=== PATIENT | male | born 1940 | race Caucasian/White ===

== ENCOUNTER 2016-07-25 13:15 | Emergency (ER) | payer MEDICARE, BC ==
[~2016-07-25] VITALS: Ht 152.4 cm; Wt 95.5 kg
[2016-07-25 13:36] VITALS: Ht 152.4 cm; Wt 95.5 kg
[2016-07-25 16:15] LABS: ADD SCAN DIFF NO
[2016-07-25 16:17] LABS: BASOPHILS % 0.3 % (0.0-2.0); EOSINOPHILS # 0.2 10^3/ul (0.0-0.5); EOSINOPHILS % 1.4 % (0.0-7.0); HEMATOCRIT 44.9 % (42.0-52.0); HEMOGLOBIN 14.8 g/dl (14.0-18.0); LYMPHOCYTES # 2.1 10^3/ul (0.8-2.9); LYMPHOCYTES % 19.7 % (15.0-51.0); MEAN CORPUSCULAR HEMOGLOBIN 30.3 pg (29.0-33.0); MEAN CORPUSCULAR VOLUME 91.8 fl (82.0-101.0); MEAN PLATELET VOLUME 11.8 fl (7.4-10.4); MONOCYTES % 9.8 % (0.0-11.0); NEUTROPHIL # 7.2 10^3/ul (1.6-7.5); NEUTROPHILS % 67.9 % (39.0-77.0); PLATELET COUNT 373 10^3/UL (140-415); RED BLOOD COUNT 4.89 10^6/ul (4.70-6.10); RED CELL DISTRIBUTION WIDTH 12.9 % (11.5-14.5); WHITE BLOOD COUNT 10.6 10^3/ul (4.8-10.8)
[2016-07-25 16:26] LABS: ALBUMIN 4.7 g/dl (3.3-4.9)
[2016-07-25 16:27] LABS: INR 0.91; PARTIAL THROMBOPLASTIN TIME 29.2 Sec (25.0-35.0); POTASSIUM 4.9 mmol/L (3.5-5.1); PROTIME 12.2 Sec (12.2-14.2)
[2016-07-25 16:30] LABS: ALBUMIN/GLOBULIN RATIO 1.62; BILIRUBIN,INDIRECT 0.6 mg/dl (0-1.1); BILIRUBIN,TOTAL 0.6 mg/dl (0.2-1.3); CALCIUM 9.8 mg/dl (8.4-10.2); CREATININE 1.19 mg/dl (0.61-1.24); TOTAL PROTEIN 7.6 g/dl (6.1-8.1)
[2016-07-25 16:33] LABS: C-REACTIVE PROTEIN 1.8 mg/dl (0.0-0.9)
--- NOTE | 2016-07-25 16:47 | RADRPT ---
PROCEDURE: XR Right Foot. CLINICAL INDICATION: Right foot pain. TECHNIQUE: Three views. Frontal, lateral, and oblique. COMPARISON: None. FINDINGS: There is no fracture or dislocation. Vascular calcifications are present consistent with atherosclerosis. The soft tissues are otherwise normal. There is diffuse osteopenia. There is a plantar calcaneal spur. Articular surfaces are intact. There is no lytic or blastic lesion. There is no radiopaque foreign body. IMPRESSION: 1. Diffuse osteopenia. 2. Plantar calcaneal spur. 3. Atherosclerosis. 4. Otherwise unremarkable images of the right foot. RPTAT: QQ .Tab Murphy MD, MD Date Time Electronically viewed and signed by .Tab Murphy MD, MD on 07/25/2016 16:46 .R/
[2016-07-25] MEDS ORDERED: CEFTRIAXONE 1 GM/50 ML (PMX) 50 ML IVPB ONE (17:30)
--- NOTE | 2016-07-25 17:57 | ERD ---
ER Documentation Chief Complaint Date/Time DATE: 07/25/16 TIME: 17:52 Chief Complaint WOUND ON RIGHT 1ST TOE X 1 MONTH. HX OF DIABETES HPI Patient is a 75-year-old male with diabetes who presents to the ED with right toe pain for greater than 1 month. He states that he was diagnosed with an abscess about 1 month ago and was treated with antibiotics. However he states that it healed and he feels that there is some mild pain and swelling in his right great toe. He states that it has been black for a while. Denies fever or chills. Denies abdominal pain, nausea, vomiting or diarrhea. Denies headache or dizziness. He states that he has not gone to a powered bridge specialist regarding this issue. ROS All systems reviewed and are negative except as per history of present illness. Medications Home Meds Active Scripts Cephalexin* (Keflex*) 500 Mg Capsule, 500 MG PO QID for 5 Days, CAP Prov:THOMAS HUTCHINS-Tam 07/25/16 Sulfamethoxazole-Trimethoprim* (Bactrim* DS) 800-160 Mg Tab, 1 TAB PO BID for 5 Days, TAB Prov:THOMAS HUTCHINS PA-C 07/25/16 Allergies Allergies: Coded Allergies: No Known Allergy (Unverified , 07/25/16) PMhx/Soc Hx Miscellaneous Medical Probl: Yes (DM) FmHx Family History: No coronary disease, No diabetes, No other Physical Exam Vitals Vital Signs Date Time Temp Pulse Resp B/P Pulse Ox O2 Delivery O2 Flow Rate FiO2 07/25/16 18:39 98.2 85 18 126/64 98 Room Air 07/25/16 13:36 98.9 95 20 139/90 97 Physical Exam GENERAL: Well-developed, well-nourished male. Appears in no acute distress. HEAD: Normocephalic, atraumatic. EYES: Pupils are equally reactive bilaterally. EOMs grossly intact. No conjunctival erythema. ENT: Moist mucous membranes. No uvula deviation. No kissing tonsils. No exudates. NECK: Supple. No lymphadenopathy or thyromegaly. No meningismus. negative kernig. negative brudinski. LUNG: Clear to auscultation bilaterally. No rhonchi, wheezing, rales or coarse breath sounds. HEART: Regular rate and rhythm. No murmurs, rubs or gallops. Extremities: Equal pulses bilaterally. No peripheral clubbing, cyanosis or edema. No unilateral leg swelling. right great toe is black with erythema on top of foot. slight warmth. no streaking. decrease in sensation of great toe and second digit. NEUROLOGIC: Alert and oriented. Moving all four extremities. 5/5 strength in all extremities. Normal speech. Steady gait. SKIN: Normal color. Warm and dry. No rashes or lesions. Capillary refill < 2 seconds Result Diagram: 07/25/16 1600 07/25/16 1600 Results 24 hrs Laboratory Tests Test 07/25/16 16:00 White Blood Count 10.610^3/ul Red Blood Count 4.8910^6/ul Hemoglobin 14.8g/dl Hematocrit 44.9% Mean Corpuscular Volume 91.8fl Mean Corpuscular Hemoglobin 30.3pg Mean Corpuscular Hemoglobin Concent 33.0g/dl Red Cell Distribution Width 12.9% Platelet Count 92133^3/UL Mean Platelet Volume 11.8fl Neutrophils % 67.9% Lymphocytes % 19.7% Monocytes % 9.8% Eosinophils % 1.4% Basophils % 0.3% Nucleated Red Blood Cells % 0.0/100WBC Neutrophils # 7.210^3/ul Lymphocytes # 2.110^3/ul Monocytes # 1.010^3/ul Eosinophils # 0.210^3/ul Basophils # 0.010^3/ul Nucleated Red Blood Cells # 0.010^3/ul Erythrocyte Sedimentation Rate 30mm/Hr Prothrombin Time 12.2Sec Prothrombin Time Ratio 1.0 INR International Normalized Ratio 0.91 Activated Partial Thromboplast Time 29.2Sec Sodium Level 139mmol/L Potassium Level 4.9mmol/L Chloride Level 99mmol/L Carbon Dioxide Level 22mmol/L Anion Gap 23 Blood Urea Nitrogen 39mg/dl Creatinine 1.19mg/dl Glucose Level 240mg/dl Calcium Level 9.8mg/dl Total Bilirubin 0.6mg/dl Direct Bilirubin 0.00mg/dl Indirect Bilirubin 0.6mg/dl Aspartate Amino Transf (AST/SGOT) 22IU/L Alanine Aminotransferase (ALT/SGPT) 33IU/L Alkaline Phosphatase 94IU/L C-Reactive Protein 1.8mg/dl Total Protein 7.6g/dl Albumin 4.7g/dl Globulin 2.90g/dl Albumin/Globulin Ratio 1.62 Current Medications Medications (Trade) Dose Ordered Sig/Lenora Route PRN Reason Start Time Stop Time Status Last Admin Dose Admin Ceftriaxone Sodium (Rocephin) 50 ml @ 100 mls/hr ONCE ONCE IVPB 07/25/16 17:30 07/25/16 17:59 DC 07/25/16 17:39 Procedures/MDM ER COURSE: I kept the patient and/or family informed of laboratory and diagnostic imaging results throughout the emergency room course. IMAGING STUDIES [place] [address] Radiology Main Line: [phone] DIAGNOSTIC IMAGING REPORT Patient: DIAMOND YEN : 1940 Age: 75 Sex: M MR #: [id number] DOS: 07/25/16 1539 Ordering MD: THOMAS HUTCHINS PA-C Location: [facility] Room/Bed: PROCEDURE: XR Right Foot. CLINICAL INDICATION: Right foot pain. TECHNIQUE: Three views. Frontal, lateral, and oblique. COMPARISON: None. FINDINGS: There is no fracture or dislocation. Vascular calcifications are present consistent with atherosclerosis. The soft tissues are otherwise normal. There is diffuse osteopenia. There is a plantar calcaneal spur. Articular surfaces are intact. There is no lytic or blastic lesion. There is no radiopaque foreign body. IMPRESSION: 1. Diffuse osteopenia. 2. Plantar calcaneal spur. 3. Atherosclerosis. 4. Otherwise unremarkable images of the right foot. RPTAT: QQ .Tab Murphy MD, Date Time Electronically viewed and signed by .Tab Murphy MD, MD on 07/25/2016 16:46 .R/ CC: THOMAS HUTCHINS PA-C MEDICAL DECISION MAKING: This is a 75-year-old male with a past medical history of diabetes who presents with right great toe discoloration and swelling.. Vital signs were reviewed. Patient is afebrile. Patient is not hypoxic. I discussed his case with Dr. Lutz who came to examine patient advised me to talk to Dr. Marsh. Dr. Marsh came to examine patient at bed side and stated that patient can be treated outpatiently. Patient does not have a white count or an abnormal PT/ PTT. X-rays of by radiologist is unremarkable. Patient likely has chronic gangrenE with mild cellulitis. Low suspicion for dislocation, fracture, septic joint, compartment syndrome, osteomyelitis, avascular necrosis, DVT, Achilles tendon rupture, cellulitis. At this time, unable to rule out any tendon and ligament injuries. Low suspicion for DVT as he does not have calf pain does not complain chest pain or shortness of breath. His vitals are within normal limits. Patient was given Rocephin here in the ED. Tolerated well. DISCHARGE: At this time, patient is stable for discharge and outpatient management with no new complaints during the ER course. Patient was sent home with Bactrim, Keflex and name of final cigar and box examiner Dr. Belle to follow up tomorrow.. Patient will be discharged home with instructions to recheck for new or worsening symptoms such as fever, nausea, weakness, LOC and to follow up with primary care in the next 1 -2 days. Patient was advised to return to the ER for any new or worsening symptoms. Plan was discussed and patient and/or family understands and agrees. Home instructions were given. Departure Diagnosis: Primary Impression: Toe infection Condition: Stable THOMAS HUTCHINS PA-C Jul 25, 2016 17:57
[2016-07-25] MEDS ORDERED: CEPH-443 PO (17:58)
[2016-07-25] MEDS ORDERED: BACTDS PO (17:58)
[2016-07-25 18:39] VITALS: BP 126/64; PULSE 85; RESP 18; TEMP 98.2
== END 2016-07-25 17:59 | disposition home or self-care (01) ==
LOC: FTE 13:15
DX: L08.9 Local infection of the skin and subcutaneous tissue, unspecified (principal); E11.9 Type 2 diabetes mellitus without complications
CPT/HCPCS: 36415; 73630; 80053; 85025; 85610; 85651; 85730; 86140; 96374; 99284; J0696

== ENCOUNTER 2017-01-20 10:30 | Inpatient (IN) | payer MEDICARE, BC ==
[~2017-01-20] VITALS: Ht 157.5 cm; Wt 100.0 kg
[~2017-01-20 10:30] MED LIST: BACTDS PO; CEPH-443 PO
[2017-01-20 10:42] VITALS: Ht 157.5 cm; Wt 100.0 kg
[2017-01-20 10:57] LABS: ABNORMAL IP MESSAGE 1; BASOPHIL # 0.1 10^3/ul (0.0-0.1); BASOPHILS % 0.4 % (0.0-2.0); EOSINOPHILS # 0.7 10^3/ul (0.0-0.5); EOSINOPHILS % 3.7 % (0.0-7.0); HEMATOCRIT 36.6 % (42.0-52.0); HEMOGLOBIN 11.2 g/dl (14.0-18.0); LYMPHOCYTES # 6.7 10^3/ul (0.8-2.9); LYMPHOCYTES % 32.8 % (15.0-51.0); MEAN CORPUSCULAR HEMOGLOBIN 28.6 pg (29.0-33.0); MEAN CORPUSCULAR HGB CONC 30.6 g/dl (32.0-37.0); MEAN CORPUSCULAR VOLUME 93.6 fl (82.0-101.0); MONOCYTE # 2.1 10^3/ul (0.3-0.9); MONOCYTES % 10.4 % (0.0-11.0); NEUTROPHIL # 10.5 10^3/ul (1.6-7.5); NEUTROPHILS % 51.6 % (39.0-77.0); PLATELET COUNT 435 10^3/UL (140-415); RED BLOOD COUNT 3.91 10^6/ul (4.70-6.10); RED CELL DISTRIBUTION WIDTH 14.4 % (11.5-14.5); WHITE BLOOD COUNT 20.3 10^3/ul (4.8-10.8)
[2017-01-20 11:15] LABS: CALCIUM 9.1 mg/dl (8.4-10.2); CREATININE 1.49 mg/dl (0.61-1.24); POTASSIUM 4.1 mmol/L (3.5-5.1)
[2017-01-20 11:27] LABS: TROPONIN-I 0.041 ng/ml (0.00-0.12)
[2017-01-20] MEDS: ASPIRIN 325 MG TAB PO STA ×2 (11:43→11:53)
--- NOTE | 2017-01-20 11:51 | RADRPT ---
PROCEDURE: Chest x-ray CLINICAL INDICATION: Chest pain TECHNIQUE: Chest single view COMPARISON: None FINDINGS: There is moderate cardiomegaly and mild atherosclerotic aortic calcification. Mild to moderate degre e CHF is identified. Component of superimposed pneumonia is not excluded. Suspect trace right pleura l effusion. Bones are osteopenic. There is moderate degenerate change left shoulder pain IMPRESSION: 1 cardiomegaly with mild to moderate CHF. 2. Suspect trace right pleural effusion. 3. Superimposed pneumonia is not excluded. 4. Mild atherosclerotic aortic calcification RPTAT: HH .Carlos Enrique Oleary MD, Date Time Electronically viewed and signed by .Carlos Enrique Oleary MD, on 01/20/2017 11:50 .W/
[2017-01-20] MEDS ORDERED: FUROSEMIDE 40 MG INJ IV ONE (12:00)
[2017-01-20] MEDS ORDERED: LEVOFLOXACIN 500MG/D5W (PMX) 100 ML IVPB ONE (14:30)
[2017-01-20] MEDS ORDERED: ATOR40TA68 PO (14:39)
[2017-01-20] MEDS ORDERED: POTA20TA96 PO (14:39)
[2017-01-20] MEDS ORDERED: FURO40TA4 PO (14:40)
[2017-01-20] MEDS ORDERED: DEXT1TAB12 PO (14:40)
[2017-01-20] MEDS ORDERED: METO-448 PO ×2 (14:41→14:47)
[2017-01-20] MEDS ORDERED: LYR75 PO ×2 (14:41→14:47)
[2017-01-20] MEDS ORDERED: METO25TA4 PO (14:48)
[2017-01-20] MEDS ORDERED: DICL75TA2 PO (14:49)
[2017-01-20] MEDS ORDERED: GLIP5TAB13 PO (14:49)
[2017-01-20] MEDS ORDERED: ENAL5TAB PO (14:49)
[2017-01-20] MEDS ORDERED: CLOP75TA27 PO (14:50)
[2017-01-20] MEDS ORDERED: TEMA15CA PO ×2 (14:50)
[2017-01-20] MEDS ORDERED: SITA50TA2 PO (14:51)
--- NOTE | 2017-01-20 14:52 | ERD ---
ER Documentation Chief Complaint Date/Time DATE: 01/20/17 TIME: 14:47 Chief Complaint BIB RA FOR EVAL OF SOB. HX OF CHF HPI 76-year-old male comes in for severe shortness of breath on CPAP. He has a history of congestive heart failure and says this feels like congestive heart failure. Denies chest pain. Denies nausea and vomiting. ROS All systems reviewed and are negative except as per history of present illness. Medications Home Meds Reported Medications Metoprolol Tartrate* (Lopressor*) 25 Mg Tab, 25 MG PO BID, #60 TAB 01/20/17 Metoprolol Tartrate* (Lopressor*) 25 Mg Tab, 25 MG PO BID, #60 TAB 01/20/17 Pregabalin* (Lyrica*) 75 Mg Capsule, 75 MG PO BID, CAP 01/20/17 Furosemide* (Furosemide*) 40 Mg Tablet, 40 MG PO DAILY, TAB 01/20/17 Dextrose (GLUCOSE BITS) 1 Gm Tab.chew, 1 GM PO DAILY Y for LOW GLUCOSE, TAB.CHEW 01/20/17 Atorvastatin* (Atorvastatin*) 40 Mg Tablet, 40 MG PO QHS, #30 TAB 01/20/17 Potassium Chloride* (Potassium Chloride*) 20 Meq Tablet.er, 10 MEQ PO DAILY, TAB.SA 01/20/17 Discontinued Scripts Cephalexin* (Keflex*) 500 Mg Capsule, 500 MG PO QID for 5 Days, CAP Prov:THOMAS HUTCHINS PA-C 07/25/16 Sulfamethoxazole-Trimethoprim* (Bactrim* DS) 800-160 Mg Tab, 1 TAB PO BID for 5 Days, TAB Prov:THOMAS HUTCHINS PA-C 07/25/16 Allergies Allergies: Coded Allergies: No Known Allergy (Unverified , 07/25/16) PMhx/Soc Medical and Surgical Hx: Unable to obtain Hx Miscellaneous Medical Probl: Yes (DM) Hx Alcohol Use: No Hx Substance Use: No Hx Tobacco Use: No Smoking Status: Unknown if ever smoked Physical Exam Vitals Vital Signs Date Time Temp Pulse Resp B/P Pulse Ox O2 Delivery O2 Flow Rate FiO2 01/20/17 12:56 100 2.0 01/20/17 12:24 77 100 50 01/20/17 11:20 97.1 63 16 131/72 100 BIPAP 15.0 01/20/17 10:42 97.4 82 22 159/80 100 01/20/17 10:35 83 93 100 Physical Exam Const: [] Severe distress Head: Atraumatic Eyes: Normal Conjunctiva ENT: Normal External Ears, Nose and Mouth. Neck: Full range of motion..~ No meningismus. Resp: Acutely decreased bibasilar breath sounds with nearly absent sounds in the bottom third of each lung, tachypnea. Cardio: Regular rate and rhythm, no murmurs Abd: Soft, non tender, non distended. Normal bowel sounds Skin: No petechiae or rashes Back: No midline or flank tenderness Ext: No cyanosis, or edema Neur: Awake and alert and oriented 3, no focal deficits Psych: Normal Mood and Affect Result Diagram: 01/20/17 1047 01/20/17 1047 Results 24 hrs Laboratory Tests Test 01/20/17 10:47 White Blood Count 20.310^3/ul Red Blood Count 3.9110^6/ul Hemoglobin 11.2g/dl Hematocrit 36.6% Mean Corpuscular Volume 93.6fl Mean Corpuscular Hemoglobin 28.6pg Mean Corpuscular Hemoglobin Concent 30.6g/dl Red Cell Distribution Width 14.4% Platelet Count 75728^3/UL Mean Platelet Volume 12.0fl Neutrophils % 51.6% Lymphocytes % 32.8% Monocytes % 10.4% Eosinophils % 3.7% Basophils % 0.4% Nucleated Red Blood Cells % 0.0/100WBC Neutrophils # 10.510^3/ul Lymphocytes # 6.710^3/ul Monocytes # 2.110^3/ul Eosinophils # 0.710^3/ul Basophils # 0.110^3/ul Nucleated Red Blood Cells # 0.010^3/ul Sodium Level 142mmol/L Potassium Level 4.1mmol/L Chloride Level 108mmol/L Carbon Dioxide Level 21mmol/L Anion Gap 17 Blood Urea Nitrogen 43mg/dl Creatinine 1.49mg/dl Glucose Level 196mg/dl Calcium Level 9.1mg/dl Troponin I 0.041ng/ml B-Type Natriuretic Peptide 2350PG/ML Current Medications Medications (Trade) Dose Ordered Sig/Lenora Route PRN Reason Start Time Stop Time Status Last Admin Dose Admin Aspirin (Aspirin) 325 mg ONCE STAT PO 01/20/17 10:41 01/20/17 10:44 DC Furosemide 40 mg 40 mg ONCE ONCE IV 01/20/17 12:00 01/20/17 12:01 DC 01/20/17 11:43 Levofloxacin/ Dextrose (Levaquin 500mg/ D5W 100 ml (Pmx)) 100 ml @ 100 mls/hr ONCE ONCE IVPB 01/20/17 14:30 01/20/17 15:29 Ondansetron HCl (Zofran Inj) 4 mg ER BRIDGE PRN IV NAUSEA AND/OR VOMITING 01/20/17 15:00 01/21/17 14:59 Acetaminophen (Tylenol Tab) 650 mg ER BRIDGE PRN PO MILD PAIN/FEVER 01/20/17 15:00 01/21/17 14:59 Procedures/MDM Acute decompensated congestive heart failure renal insufficiency. Patient was placed on BiPAP immediately. He was given 40 mg of Lasix. His blood pressure would not support nitroglycerin. Was feeling better on BiPAP but remained on it for quite some time. He is being admitted to the hospitalist to telemetry for further diuresis and management of his CHF. Also has an elevated white count and with inability to rule out pneumonia have given him a gram of Levaquin obtained cultures of both blood and urine EKG interpretation: Normal sinus rhythm rate of 71, normal axis, wave inversions in the inferolateral leads suspicious for ischemia, normal intervals. Monitor interpretation: Normal sinus rhythm without arrhythmia Chest x-ray interpretation: Hazy densities in lower lungs suspicious for pleural effusion however pneumonia cannot be excluded, no pneumothorax, no widened mediastinum, no fractures Critical care time greater than 35 minutes: This includes treatment of acute decompensated congestive heart failure, use of BiPAP,, ventilator management, consideration of intubation, chart reviewed, multiple visits the patient's bedside to reassess status, discussion with patient admitting doctor. This does not include billable procedures. Departure Diagnosis: Primary Impression: Congestive heart failure Additional Impressions: Renal insufficiency Respiratory failure Leukocytosis Condition: Serious LENAKYMTEMI DO Jan 20, 2017 14:52
[2017-01-20] MEDS ORDERED: ACETAMINOPHEN 325 MG TAB PO PRN (15:00)
[2017-01-20] MEDS ORDERED: ONDANSETRON 4 MG INJ IV PRN (15:00)
[2017-01-20] MEDS ORDERED: NACL 0.9% 3 ML SYG IV SCH (16:00)
[2017-01-20 17:00] VITALS: TEMP 97.8
[2017-01-20 17:27] LABS: TROPONIN-I 0.036 ng/ml (0.00-0.12)
[2017-01-20 17:32] LABS: CK-MB 1.59 ng/ml (0.0-2.4)
--- NOTE | 2017-01-20 17:35 | HP ---
Date/Time of Note Date/Time of Note DATE: 01/20/17 TIME: 17:32 Assessment/Plan VTE Prophylaxis VTE Prophylaxis Intervention: SCD's Lines/Catheters IV Catheter Type (from Nrs): Peripheral IV Assessment/Plan Assessment/Plan 76 yo M with CAD presents with SOB, elevated BNP, LE swelling and imaging suggestive of volume overload. Clinical scenario concerning for acute systolic decompensated HF PLAN high dose lasix Is/Os, daily weights cont home meds though hold PO DM regimen. Change to SSI TTE a1c, lipids trops though unlikely ACS given no chest pain WBCs high but no fever. no clear infiltrated on CXR therefore defer additional abx at this time HPI/ROS Admit Date/Time Admit Date/Time Hx of Present Illness 76 yo M with pmhx CAD sp PCI with 3 stents, unclear hx CHF, obesity presents with 1 day SOB. Reports it's been gradual in onset since yesterday also reports leg swelling. No chest pain, no fevers, chills, or coughing PMH/Family/Social Past Medical History as per HPI Social History lives in the community Smoking Status: Unknown if ever smoked Exam/Review of Systems Vital Signs Vitals Vital Signs Date Time Temp Pulse Resp B/P Pulse Ox O2 Delivery O2 Flow Rate FiO2 01/20/17 17:00 97.8 75 17 148/66 98 Room Air 01/20/17 12:24 50 Exam Exam sitting up in bed EOMI MMM no sig JVD no mrg lungs without crackles abd soft no rashes 1+ bl pedal edema labs reviewed, BNP elevated CXR with vascular congestion and cardiomegaly Labs Result Diagram: 01/20/17 1047 01/20/17 1047 Medications Medications Current Medications Atorvastatin Calcium (Lipitor) 40 mg QHS PO ; Start 01/20/17 at 21:00 Clopidogrel Bisulfate (plaVIX) 75 mg DAILY PO ; Start 01/21/17 at 09:00 Enalapril Maleate (Vasotec) 5 mg DAILY PO ; Start 01/21/17 at 09:00 Furosemide (Lasix) 40 mg DAILY PO ; Start 01/21/17 at 09:00 Metoprolol Tartrate (Lopressor) 25 mg BID PO ; Start 01/20/17 at 21:00 Potassium Chloride (Klor-Con 20) 10 meq DAILY PO ; Start 10/7/17 at 09:00 Pregabalin (Lyrica) 75 mg BID PO ; Start 01/20/17 at 21:00 Enoxaparin Sodium (Lovenox) 40 mg DAILY SC ; Start 01/21/17 at 09:00 ASHWIN MCINTOSH MD Jan 20, 2017 17:35
[2017-01-20 18:25] VITALS: BMI 40.3
[2017-01-20] MEDS: FUROSEMIDE 40 MG INJ IV SCH (19:02)
[2017-01-20 20:00] VITALS: BP 139/67; PULSE 70; RESP 20
[2017-01-20] MEDS ORDERED: GLUCOSE GEL 15 GRAM TUBE PO PRN ×2 (21:00)
[2017-01-20] MEDS ORDERED: DEXTROSE 50% 50 ML SYRINGE IV PRN ×2 (21:00)
[2017-01-20] MEDS ORDERED: GLUCAGON 1 MG INJ IM PRN (21:00)
[2017-01-20] MEDS ORDERED: GLUCOSE GEL 15 GRAM TUBE BUCCAL PRN (21:00)
[2017-01-20] MEDS: ATORVASTATIN 40 MG TAB PO SCH ×2 (21:00→21:20)
[2017-01-20] MEDS: METOPROLOL 25 MG TAB PO SCH (21:20)
[2017-01-20] MEDS: PREGABALIN 75 MG CAP PO SCH (21:20)
[2017-01-20] MEDS: INSULIN ASPART [NOVOLOG] 3 ML PEN SC SCH (21:32)
[2017-01-20] MEDS ORDERED: ZOLPIDEM 5 MG TAB PO SCH (22:30)
[2017-01-21] VITALS (12 sets, daily range): BP systolic 104–162; BP diastolic 51–84; PULSE 66–103; RESP 16–19
[2017-01-21 01:44] LABS: CK-MB 2.11 ng/ml (0.0-2.4); TROPONIN-I 0.065 ng/ml (0.00-0.12)
[2017-01-21] MEDS ORDERED: ACCU-CHEK XX SCH (02:00)
[2017-01-21] MEDS: ACCU-CHEK XX SCH (02:16)
[2017-01-21] MEDS: FUROSEMIDE 40 MG INJ IV SCH (05:27)
[2017-01-21] MEDS ORDERED: PENDING SANTYL ORDER FOR WOUND CARE XX PRN (07:00)
[2017-01-21 07:22] LABS: BASOPHILS % 0.2 % (0.0-2.0); EOSINOPHILS # 0.3 10^3/ul (0.0-0.5); HEMATOCRIT 32.7 % (42.0-52.0); HEMOGLOBIN 10.3 g/dl (14.0-18.0); LYMPHOCYTES % 19.5 % (15.0-51.0); MEAN CORPUSCULAR HEMOGLOBIN 28.3 pg (29.0-33.0); MEAN CORPUSCULAR HGB CONC 31.5 g/dl (32.0-37.0); MEAN CORPUSCULAR VOLUME 89.8 fl (82.0-101.0); MEAN PLATELET VOLUME 11.6 fl (7.4-10.4); MONOCYTES % 10.4 % (0.0-11.0); NEUTROPHIL # 6.6 10^3/ul (1.6-7.5); NEUTROPHILS % 66.1 % (39.0-77.0); PLATELET COUNT 318 10^3/UL (140-415); RED BLOOD COUNT 3.64 10^6/ul (4.70-6.10); RED CELL DISTRIBUTION WIDTH 14.5 % (11.5-14.5)
[2017-01-21 07:45] LABS: CALCIUM 9.7 mg/dl (8.4-10.2); CHOL/HDL RATIO 2.5 RATIO; CREATININE 1.71 mg/dl (0.61-1.24); MAGNESIUM 1.7 mg/dl (1.7-2.5); POTASSIUM 4.1 mmol/L (3.5-5.1)
[2017-01-21] MEDS: PREGABALIN 75 MG CAP PO SCH ×2 (08:09→21:04)
[2017-01-21] MEDS: CLOPIDOGREL 75 MG TAB PO SCH (08:11)
[2017-01-21] MEDS: ENALAPRIL 5 MG TAB PO SCH (08:11)
[2017-01-21] MEDS: POTASSIUM CHLORIDE (SR) 20 MEQ TAB PO SCH (08:11)
[2017-01-21] MEDS: METOPROLOL 25 MG TAB PO SCH ×2 (08:12→21:04)
[2017-01-21] MEDS: ENOXAPARIN 40 MG/0.4 ML SYG SC SCH (08:16)
[2017-01-21] MEDS: INSULIN ASPART [NOVOLOG] 3 ML PEN SC SCH ×4 (08:17→21:00)
[2017-01-21] MEDS ORDERED: FUROSEMIDE 40 MG TAB PO SCH (09:00)
[2017-01-21] MEDS ORDERED: ENOXAPARIN 40 MG/0.4 ML SYG SC SCH (09:00)
[2017-01-21] MEDS ORDERED: INSULIN ASPART [NOVOLOG] 3 ML PEN SC ONE (13:30)
[2017-01-21] MEDS ORDERED: DOCUSATE SODIUM 100 MG CAP PO PRN (15:00)
[2017-01-21] MEDS ORDERED: BISACODYL (EC) 5 MG TAB PO PRN (15:00)
--- NOTE | 2017-01-21 15:43 | PN ---
Date/Time of Note Date/Time of Note DATE: 01/21/17 TIME: 15:38 Assessment/Plan VTE Prophylaxis VTE Prophylaxis Intervention: SCD's Lines/Catheters IV Catheter Type (from Nrs): Saline Lock Urinary Cath still in place: No Assessment/Plan Assessment/Plan 76 yo M with CAD with SOB, elevated BNP, LE swelling and imaging suggestive of volume overload. Clinical scenario concerning for acute systolic decompensated HF PLAN decrease lasix to daily given possible orthostatic hypotension check orthostatics Is/Os, daily weights cont home meds though hold PO DM regimen. Change to SSI. add lantus TTE pending a1c 6.1, LDL 41; trops negative WBCs now nl Subjective 24 Hr Interval Summary Free Text/Dictation Pt states his breathing feels almost totally back to normal but now feels lightheaded with standing. Exam/Review of Systems Vital Signs Vitals Vital Signs Date Time Temp Pulse Resp B/P Pulse Ox O2 Delivery O2 Flow Rate FiO2 01/21/17 12:16 72 01/21/17 11:53 98.1 19 113/68 97 01/20/17 17:00 Room Air 01/20/17 12:24 50 Intake and Output 01/20/17 01/20/17 01/21/17 15:00 23:00 07:00 Intake Total 400 ml 300 ml Output Total 750 ml Balance -350 ml 300 ml Exam nad no crackles abd soft no rashes no edema elevated BG noted. Lantus was not on med rec Results Result Diagram: 01/21/17 0659 01/21/17 0659 Results 24 hrs Laboratory Tests Test 01/20/17 16:30 01/20/17 21:16 01/21/17 00:36 01/21/17 02:14 Creatine Kinase 62 90 Creatine Kinase Index 2.6 2.3 Creatinine Kinase MB (Mass) 1.59 2.11 Troponin I 0.036 0.065 Bedside Glucose 238 H 122 Test 01/21/17 06:59 01/21/17 08:09 01/21/17 12:08 01/21/17 13:33 White Blood Count 10.0 # Red Blood Count 3.64 L Hemoglobin 10.3 L Hematocrit 32.7 L Mean Corpuscular Volume 89.8 Mean Corpuscular Hemoglobin 28.3 L Mean Corpuscular Hemoglobin Concent 31.5 L Red Cell Distribution Width 14.5 Platelet Count 318 # Mean Platelet Volume 11.6 H Neutrophils % 66.1 Lymphocytes % 19.5 Monocytes % 10.4 Eosinophils % 3.0 Basophils % 0.2 Nucleated Red Blood Cells % 0.0 Neutrophils # 6.6 Lymphocytes # 2.0 Monocytes # 1.0 H Eosinophils # 0.3 Basophils # 0.0 Nucleated Red Blood Cells # 0.0 Sodium Level 140 Potassium Level 4.1 Chloride Level 102 Carbon Dioxide Level 32 #H Anion Gap 10 # Blood Urea Nitrogen 51 H Creatinine 1.71 H Glucose Level 149 # Hemoglobin A1c 6.1 H Calcium Level 9.7 Magnesium Level 1.7 Triglycerides Level 58 Cholesterol Level 87 L LDL Cholesterol, Calculated 41 HDL Cholesterol 34 Cholesterol/HDL Ratio 2.5 Bedside Glucose 150 332 H 352 H Medications Medications Current Medications Atorvastatin Calcium (Lipitor) 40 mg QHS PO ; Start 01/20/17 at 21:00 Clopidogrel Bisulfate (plaVIX) 75 mg DAILY PO Last administered on 01/21/17 08 :11; Admin Dose 75 MG; Start 01/21/17 at 09:00 Enalapril Maleate (Vasotec) 5 mg DAILY PO Last administered on 01/21/17 08:11 ; Admin Dose 5 MG; Start 01/21/17 at 09:00 Metoprolol Tartrate (Lopressor) 25 mg BID PO Last administered on 01/21/17 08: 12; Admin Dose 25 MG; Start 01/20/17 at 21:00 Potassium Chloride (Klor-Con 20) 10 meq DAILY PO Last administered on 08:11; Admin Dose 10 MEQ; Start 01/21/17 at 09:00 Pregabalin (Lyrica) 75 mg BID PO Last administered on 01/21/17 08:09; Admin Dose 75 MG; Start 01/20/17 at 21:00 Enoxaparin Sodium (Lovenox) 40 mg DAILY SC Last administered on 01/21/17 08:16 ; Admin Dose 40 MG; Start 01/21/17 at 09:00 Diagnostic Test (Pha) (Accu-Chek) 1 ea 02 XX Last administered on 01/21/17 02: 16; Admin Dose 1 EA; Start 01/21/17 at 02:00 Miscellaneous Information 1 ea NOTE XX ; Start 01/20/17 at 21:00 Glucose (Glutose) 15 gm Q15M PRN PO DECREASED GLUCOSE; Start 01/20/17 at 21:00 Glucose (Glutose) 22.5 gm Q15M PRN PO DECREASED GLUCOSE; Start 01/20/17 at 21: 00 Dextrose (D50w Syringe) 25 ml Q15M PRN IV DECREASED GLUCOSE; Start 01/20/17 at 21:00 Dextrose (D50w Syringe) 50 ml Q15M PRN IV DECREASED GLUCOSE; Start 01/20/17 at 21:00 Glucagon (Glucagen) 1 mg Q15M PRN IM DECREASED GLUCOSE; Start 01/20/17 at 21:00 Glucose (Glutose) 15 gm Q15M PRN BUCCAL DECREASED GLUCOSE; Start 01/20/17 at 21 :00 [facility]isc[facility] This patient gil... PRN PRN XX WOUND CARE; Start 01/21/17 at 07:00 Insulin Glargine (Lantus) 15 unit DAILY@08 SC ; Start 01/22/17 at 08:00 Bisacodyl (Dulcolax) 5 mg DAILY PRN PO CONSTIPATION; Start 01/21/17 at 15:00 Docusate Sodium (Colace) 100 mg BID PRN PO CONSTIPATION Last administered on t 14:50; Admin Dose 100 MG; Start 01/21/17 at 15:00 ASHWIN MCINTOSH MD Jan 21, 2017 15:43
[2017-01-21] MEDS ORDERED: INSULIN GLARGINE [LANtus] 3 ML PEN SC SCH (20:00)
[2017-01-21] MEDS: ATORVASTATIN 40 MG TAB PO SCH (21:04)
[2017-01-21] MEDS: INSULIN GLARGINE [LANtus] 3 ML PEN SC SCH (23:11)
[2017-01-22] VITALS (12 sets, daily range): BP systolic 97–133; BP diastolic 56–64; PULSE 58–80; RESP 17–20
[2017-01-22] MEDS: ACCU-CHEK XX SCH (02:00)
[2017-01-22] MEDS ORDERED: INSULIN GLARGINE [LANtus] 3 ML PEN SC SCH (08:00)
[2017-01-22] MEDS: INSULIN GLARGINE [LANtus] 3 ML PEN SC SCH ×2 (08:00→20:49)
[2017-01-22] MEDS: INSULIN ASPART [NOVOLOG] 3 ML PEN SC SCH ×4 (08:00→20:48)
[2017-01-22 08:20] LABS: BASOPHILS % 0.3 % (0.0-2.0); EOSINOPHILS # 0.4 10^3/ul (0.0-0.5); EOSINOPHILS % 3.5 % (0.0-7.0); HEMATOCRIT 31.9 % (42.0-52.0); LYMPHOCYTES # 2.6 10^3/ul (0.8-2.9); LYMPHOCYTES % 26.2 % (15.0-51.0); MEAN CORPUSCULAR HEMOGLOBIN 28.5 pg (29.0-33.0); MEAN CORPUSCULAR HGB CONC 31.3 g/dl (32.0-37.0); MEAN CORPUSCULAR VOLUME 90.9 fl (82.0-101.0); MEAN PLATELET VOLUME 11.6 fl (7.4-10.4); MONOCYTE # 1.3 10^3/ul (0.3-0.9); MONOCYTES % 13.2 % (0.0-11.0); NEUTROPHIL # 5.6 10^3/ul (1.6-7.5); PLATELET COUNT 318 10^3/UL (140-415); RED BLOOD COUNT 3.51 10^6/ul (4.70-6.10); RED CELL DISTRIBUTION WIDTH 14.3 % (11.5-14.5)
[2017-01-22] MEDS: POTASSIUM CHLORIDE (SR) 20 MEQ TAB PO SCH (08:45)
[2017-01-22] MEDS: ENOXAPARIN 40 MG/0.4 ML SYG SC SCH (08:46)
[2017-01-22 08:48] LABS: CALCIUM 9.4 mg/dl (8.4-10.2); CREATININE 1.38 mg/dl (0.61-1.24); MAGNESIUM 1.9 mg/dl (1.7-2.5)
[2017-01-22] MEDS: CLOPIDOGREL 75 MG TAB PO SCH (08:50)
[2017-01-22] MEDS: ENALAPRIL 5 MG TAB PO SCH (08:51)
[2017-01-22] MEDS: PREGABALIN 75 MG CAP PO SCH ×2 (08:51→20:44)
[2017-01-22] MEDS: METOPROLOL 25 MG TAB PO SCH ×2 (08:53→20:44)
[2017-01-22] MEDS: FUROSEMIDE 40 MG INJ IV SCH (08:54)
--- NOTE | 2017-01-22 11:44 | RADRPT ---
Echocardiogram Report Patient Name: DIAMOND YEN Gender: Male Date: 1940 Study Date: 21-Jan-2017 Lard Renderer: Jelani Mejia [facility] Location: [id number] Ref. Physician: ASHWIN MCINTOSH Quality: Adequate Procedures: Transthoracic echocardiogram with complete 2D, M-Mode, and doppler examination. Indications: Shortness of breath. 2D/M Mode Doppler Measurement Value Normal Ranges Measurement Value Normal Ranges LVIDd 2D 5.5 3.5 - 5.6 cm AV Peak Casimiro 1.4 m/sec LVIDs 2D 3.8 2.1 - 4.1 cm AV Peak PG 8.0 mmHg FS 2D 31.6 % LVOT Peak Casimiro 1.0 m/sec LVPWd 2D 1.3 0.6 - 1.1 cm LVOT Peak PG 4.0 mmHg IVSd 2D 1.3 0.6 - 1.1 cm MV E Peak Casimiro 0.9 m/sec IVS/LVPW 2D 1.0 MV A Peak Casimiro 1.0 m/sec AoR Diam 2D 3.2 2.0 - 3.7 cm MV E/A 0.9 LA/Ao 2D 1 0 - 1 MV Decel Time 239 msec EDV 2D 165.0 cm3 MV E/A 0.9 ESV 2D 52.7 cm3 TR Peak Casimiro 2.5 m/sec LA Dimen 2D 4.5 2.3 - 4.0 cm TR Peak PG 24.0 mmHg RVSP 27.0 mmHg Findings Left Ventricle: Normal left ventricular systolic function. Normal left ventricular cavity size. Mild concentric left ventricular hypertrophy. Ejection fraction is visually estimated at 55 %. Tissue Doppler/Mitral Doppler indices are consistent with impaired relaxation (Stage I diastolic dysfunction). Anterior wall is not well seen. Right Ventricle: Normal right ventricular size. Normal right ventricular systolic function. Left Atrium: There is mild enlargement of left atrium. Right Atrium: The right atrium is normal in size. Mitral Valve: Normal appearance of the mitral valve. Mild mitral valve regurgitation. Aortic Valve: No significant aortic stenosis or insufficiency. Aortic cusps appear mildly calcified. Trace aortic valve regurgitation. Tricuspid Valve: Normal appearance of the tricuspid valve. Estimated peak PA systolic pressure 27 mmHg. There is mild tricuspid regurgitation. Pulmonic Valve: Pulmonic valve not well visualized. There is trace pulmonic regurgitation. Pericardium: Normal pericardium with no significant pericardial effusion. Aorta: Normal aortic root. IVC: Normal size and normal respiratory collapse consistent with normal right atrial pressure. Conclusions 1.Normal left ventricular systolic function. Normal left ventricular cavity size. Mild concentric left ventricular hypertrophy. Ejection fraction is visually estimated at 55 %. Tissue Doppler/Mitral Doppler indices are consistent with impaired relaxation (Stage I diastolic dysfunction). Anterior wall is not well seen. 2.No significant valvular stenosis or regurgitation seen. 3.Estimated peak PA systolic pressure 27 mmHg based on RA pressure of 3 mmHg. Electronically Signed By: David Haines 22-Jan-2017 11:44:30 -0700 Patient Name: DIAMOND YEN Study Date: 21-Jan-2017 [id number]
--- NOTE | 2017-01-22 14:31 | PN ---
Date/Time of Note Date/Time of Note DATE: 01/22/17 TIME: 14:28 Assessment/Plan VTE Prophylaxis VTE Prophylaxis Intervention: SCD's Lines/Catheters IV Catheter Type (from Nrs): Saline Lock Urinary Cath still in place: No Assessment/Plan Assessment/Plan 76 yo M with CAD with SOB, elevated BNP, LE swelling and imaging suggestive of volume overload. TTE with nl EF and stage I DD. PLAN go back to home lasix check orthostatics Is/Os, daily weights-->per RN pt frequently urinating into toilet and not collecting system. Suspect UOP documented is less than his actual UOP cont home meds though hold PO DM regimen. Change to SSI. added home lantus a1c 6.1, LDL 41; trops negative Pt with chronic dry gangrene of R foot. this has been present for >3 mos and is followed by an outside lead database administrator on sw eval, concerns about safety of home situation were raised. PT/OT to evaluate patient. APS report was filed. dispo: possibly home in AM pending PT/OT evals Subjective 24 Hr Interval Summary Free Text/Dictation states his breathing is almost back to normal when talking to sw, pt revealed that though his son is his assigned SSI caregiver, son is not attending to pt as frequently as the hours he's getting paid for would suggest Exam/Review of Systems Vital Signs Vitals Vital Signs Date Time Temp Pulse Resp B/P Pulse Ox O2 Delivery O2 Flow Rate FiO2 01/22/17 12:10 70 01/22/17 12:06 97.8 18 124/64 92 01/20/17 17:00 Room Air 01/20/17 12:24 50 Intake and Output 01/21/17 01/21/17 01/22/17 15:00 23:00 07:00 Intake Total 700 ml 500 ml Balance 700 ml 500 ml Exam nad pleasant no mrg lungs clear abd soft no edema socks removed. L foot intact, R foot with dry gangrene of first 3 toes. pt states this has been present for >3 mos and he follows with an outside lead database administrator TTE Conclusions 1. Normal left ventricular systolic function. Normal left ventricular cavity size. Mild concentric left ventricular hypertrophy. Ejection fraction is visually estimated at 55 %. Tissue Doppler/Mitral Doppler indices are consistent with impaired relaxation (Stage I diastolic dysfunction). Anterior wall is not well seen. 2. No significant valvular stenosis or regurgitation seen. 3. Estimated peak PA systolic pressure 27 mmHg based on RA pressure of 3 mmHg. Results Result Diagram: 01/22/17 0746 01/22/17 0746 Results 24 hrs Laboratory Tests Test 01/21/17 17:05 01/21/17 21:01 01/21/17 23:11 01/22/17 02:48 Bedside Glucose 120 169 175 121 Test 01/22/17 07:46 01/22/17 08:11 01/22/17 12:06 White Blood Count 10.0 Red Blood Count 3.51 L Hemoglobin 10.0 L Hematocrit 31.9 L Mean Corpuscular Volume 90.9 Mean Corpuscular Hemoglobin 28.5 L Mean Corpuscular Hemoglobin Concent 31.3 L Red Cell Distribution Width 14.3 Platelet Count 318 Mean Platelet Volume 11.6 H Neutrophils % 56.0 Lymphocytes % 26.2 Monocytes % 13.2 H Eosinophils % 3.5 Basophils % 0.3 Nucleated Red Blood Cells % 0.0 Neutrophils # 5.6 Lymphocytes # 2.6 Monocytes # 1.3 H Eosinophils # 0.4 Basophils # 0.0 Nucleated Red Blood Cells # 0.0 Sodium Level 139 Potassium Level 4.0 Chloride Level 100 Carbon Dioxide Level 32 H Anion Gap 11 Blood Urea Nitrogen 44 H Creatinine 1.38 H Glucose Level 129 Calcium Level 9.4 Magnesium Level 1.9 Bedside Glucose 117 189 Medications Medications Current Medications Atorvastatin Calcium (Lipitor) 40 mg QHS PO Last administered on 01/21/17 21: 04; Admin Dose 40 MG; Start 01/20/17 at 21:00 Clopidogrel Bisulfate (plaVIX) 75 mg DAILY PO Last administered on 01/22/17 08 :50; Admin Dose 75 MG; Start 01/21/17 at 09:00 Enalapril Maleate (Vasotec) 5 mg DAILY PO Last administered on 01/22/17 08:51 ; Admin Dose 5 MG; Start 01/21/17 at 09:00 Metoprolol Tartrate (Lopressor) 25 mg BID PO Last administered on 01/22/17 08: 53; Admin Dose 25 MG; Start 01/20/17 at 21:00 Potassium Chloride (Klor-Con 20) 10 meq DAILY PO Last administered on 08:45; Admin Dose 10 MEQ; Start 01/21/17 at 09:00 Pregabalin (Lyrica) 75 mg BID PO Last administered on 01/22/17 08:51; Admin Dose 75 MG; Start 01/20/17 at 21:00 Enoxaparin Sodium (Lovenox) 40 mg DAILY SC Last administered on 01/22/17 08:46 ; Admin Dose 40 MG; Start 01/21/17 at 09:00 Diagnostic Test (Pha) (Accu-Chek) 1 ea 02 XX Last administered on 01/21/17 02: 16; Admin Dose 1 EA; Start 01/21/17 at 02:00 Miscellaneous Information 1 ea NOTE XX ; Start 01/20/17 at 21:00 Glucose (Glutose) 15 gm Q15M PRN PO DECREASED GLUCOSE; Start 01/20/17 at 21:00 Glucose (Glutose) 22.5 gm Q15M PRN PO DECREASED GLUCOSE; Start 01/20/17 at 21: 00 Dextrose (D50w Syringe) 25 ml Q15M PRN IV DECREASED GLUCOSE; Start 01/20/17 at 21:00 Dextrose (D50w Syringe) 50 ml Q15M PRN IV DECREASED GLUCOSE; Start 01/20/17 at 21:00 Glucagon (Glucagen) 1 mg Q15M PRN IM DECREASED GLUCOSE; Start 01/20/17 at 21:00 Glucose (Glutose) 15 gm Q15M PRN BUCCAL DECREASED GLUCOSE; Start 01/20/17 at 21 :00 Miscellaneous Information (Pending [facility] Order For Wound Care) This patient gil... PRN PRN XX WOUND CARE; Start 01/21/17 at 07:00 Bisacodyl (Dulcolax) 5 mg DAILY PRN PO CONSTIPATION; Start 01/21/17 at 15:00 Docusate Sodium (Colace) 100 mg BID PRN PO CONSTIPATION Last administered on 14:50; Admin Dose 100 MG; Start 01/21/17 at 15:00 Furosemide (Lasix) 40 mg DAILY IV Last administered on 01/22/17 08:54; Admin Dose 40 MG; Start 01/22/17 at 09:00 Insulin Glargine (Lantus) 15 unit DAILY@08 SC Last administered on 01/21/17 23 :11; Admin Dose 15 UNIT; Start 01/21/17 at 22:30 ASHWIN MCINTOSH MD Jan 22, 2017 14:31
[2017-01-22] MEDS ORDERED: ACETAMINOPHEN 325 MG TAB ONE (15:32)
[2017-01-22] MEDS: ACETAMINOPHEN 325 MG TAB PO PRN ×2 (15:58→20:45)
[2017-01-22] MEDS: ATORVASTATIN 40 MG TAB PO SCH (20:44)
[2017-01-23] VITALS (8 sets, daily range): BP systolic 107–134; BP diastolic 51–71; PULSE 66–96; RESP 18–20
[2017-01-23] MEDS: ACCU-CHEK XX SCH (02:36)
[2017-01-23] MEDS: METOPROLOL 25 MG TAB PO SCH (09:18)
[2017-01-23] MEDS: CLOPIDOGREL 75 MG TAB PO SCH (09:18)
[2017-01-23] MEDS: POTASSIUM CHLORIDE (SR) 20 MEQ TAB PO SCH (09:18)
[2017-01-23] MEDS: ENALAPRIL 5 MG TAB PO SCH (09:18)
[2017-01-23] MEDS: PREGABALIN 75 MG CAP PO SCH (09:19)
[2017-01-23] MEDS: FUROSEMIDE 40 MG INJ IV SCH (09:19)
[2017-01-23] MEDS: ENOXAPARIN 40 MG/0.4 ML SYG SC SCH (09:24)
[2017-01-23] MEDS: INSULIN ASPART [NOVOLOG] 3 ML PEN SC SCH (10:00)
[2017-01-23] MEDS ORDERED: INSULIN ASPART [NOVOLOG] 3 ML PEN SC SCH ×2 (12:40)
--- NOTE | 2017-01-23 14:35 | PDOCDIS ---
Discharge Instructions CONDITION Patient Condition: Stable HOME CARE INSTRUCTIONS: Special Diet: 1800 suad, 2 Gm Na ACTIVITY: Activity Restrictions: Slowly Increase Activity FOLLOW UP/APPOINTMENTS Follow-up Plan Please take your medications as prescribed. Please follow-up with her regular doctor in the clinic in the next 1 week. ONDINA WASHINGTON Jan 23, 2017 14:34
[2017-01-23] MEDS ORDERED: INSULIN GLARGINE [LANtus] 3 ML PEN SC SCH (21:00)
--- NOTE | 2017-01-24 05:35 | DS ---
DATE OF ADMISSION: 01/20/2017 DATE OF DISCHARGE: 01/23/2017 HOSPITAL COURSE: This is a 76-year-old male, originally admitted on 01/20/2017 and being discharged home on 01/23/2017. The patient came in with history of coronary artery disease, status post 3 stents placed in the past. He came in with shortness of breath and signs of CHF exacerbation as his BNP was elevated. He also had lower extremity swelling, and his chest imaging studies suggested volume overload, so he was admitted for acute systolic decompensated heart failure. He was placed on IV Lasix and his In's and Out's were monitored and daily weights. Over the course of hospital stay, shortness of breath has improved. His vital signs remain stable. He had some leukocytosis on the day of admission. This resolved by the time of discharge. The culture results were negative growth times 2 days for blood. He was seen by physical therapy, occupational therapy team, who recommended home PT and OT respectively, which we are going to arrange for that. The patient is able to ambulate with assistance, his vital signs are stable, his shortness of breath has improved, he is able to tolerate diet, and he will be discharged home today in improved condition. He will be sent with atorvastatin 20 mg nightly, Plavix 75 mg daily, dextrose, [____] 1 g p.o. daily p.r.n., diclofenac 75 mg b.i.d., enalapril 5 mg daily, furosemide 40 mg p.o. daily, glipizide 5 mg b.i.d., Lopressor 25 mg b.i.d., potassium chloride 10 mEq daily, they were adjusted to 5 mg b.i.d., Januvia 50 mg daily, temazepam 50 mg p.o. nightly p.r.n. He will follow up with his regular doctor in clinic in the next 1 to 2 weeks. FINAL DIAGNOSES: 1. Shortness of breath secondary to acute systolic decompensated heart failure, now improved. Of note, he had an echocardiogram on this admission that showed ejection fraction of 55 percent, normal left ventricular systolic function, normal left ventricular cavity size. There is some mild concentric left ventricular hypertrophy. There is some stage 1 diastolic dysfunction, but no significant valvular stenosis or regurgitation seen. 2. History of coronary artery disease, status post stent times 3 in the past. 3. Unclear history of congestive heart failure in the past. 4. Mild type 1 diabetes, A1c of 6.1. Total time of 45 minutes. Dictated By: Shola Velez MD /[email or web address]/[email or web address] /Document#: [id number]
== END 2017-01-23 15:42 | disposition home or self-care (01) | DRG 292 ==
LOC: E/R 10:30 → MS4 14:36
PROVIDERS: ADMIT Internal Medicine; ATTEND Internal Medicine
PROC: 5A09357 Assistance with Respiratory Ventilation, Less than 24 Consecutive Hours, Continuous Positive Airway Pressure (ICD-10-PCS; principal; 2017-01-20)
DX: I50.21 Acute systolic (congestive) heart failure (principal); Z68.41 Body mass index [BMI] 40.0-44.9, adult; I96 Gangrene, not elsewhere classified; E10.52 Type 1 diabetes mellitus with diabetic peripheral angiopathy with gangrene; E66.01 Morbid (severe) obesity due to excess calories; I25.10 Atherosclerotic heart disease of native coronary artery without angina pectoris; Z95.5 Presence of coronary angioplasty implant and graft; D72.829 Elevated white blood cell count, unspecified
CPT/HCPCS: 36415; 71010; 80048; 80061; 82550; 82553; 82962; 83036; 83735; 83880; 84484; 85025; 87040; 93005; 93306; 94660; 96374; 96375; 97162; 97167; J1650; J1815; J1940; J1956

== ENCOUNTER 2017-03-17 09:11 | Inpatient (IN) | END 2017-04-18 20:15 | DRG 853 ==